=== PATIENT | male | born 1985 | race African-American/Black ===

== ENCOUNTER 2023-10-18 13:32 | Emergency (ER) | payer OTHER ==
[~2023-10-18] VITALS: Ht 175.3 cm; Wt 97.7 kg
[2023-10-18 14:47] LABS: APPEARANCE,URINE CLEAR (CLEAR); BILIRUBIN,URINE NEGATIVE (NEGATIVE); COLOR,URINE YELLOW (YELLOW); GLUCOSE, URINE (UA) NEGATIVE (NEGATIVE); KETONES,URINE NEGATIVE (NEGATIVE); LEUKOCYTE ESTERASE ,URINE NEGATIVE (NEGATIVE); NITRATE,URINE NEGATIVE (NEGATIVE); OCCULT BLOOD,URINE NEGATIVE (NEGATIVE); PROTEIN,URINE 30-70 mg/dL (NEGATIVE); SPECIFIC GRAVITIY, URINE 1.028 (1.003-1.030)
[2023-10-18 15:04] LABS: BACTERIA,URINE None Seen /HPF (None Seen); RBC,URINE None Seen /HPF (0-2); WBC,URINE 0-2 /HPF (0-5)
[2023-10-18 16:55] VITALS: BP 131/71; PULSE 62; RESP 18; TEMP 98.6
[2023-10-18] MEDS: CefTRIAXone SODIUM 1 GM/VIAL IM ONE (17:10)
[2023-10-18] MEDS: AZITHROMYCIN 500 MG TABLET PO ONE (17:11)
[2023-10-18] MEDS: LIDOCAINE/PF 1% 2 ML VIAL IM ONE (17:11)
== END 2023-10-18 17:28 | disposition home or self-care (01) ==
LOC: EMS 13:38
DX: N34.2 Other urethritis (principal); R30.9 Painful micturition, unspecified
CPT/HCPCS: 99283; 81001; 87491; 87591; 96372; J0696; J3490; Q9967